=== PATIENT | male | born 1980 | race Caucasian/White ===

== ENCOUNTER 2017-09-19 10:32 | Emergency (ER) | payer OTHER ==
[2017-09-19 10:48] VITALS: BP 146/63; PULSE 84; TEMP 98.2; BMI 23.3
[2017-09-19] MEDS ORDERED: diazePAM 5 MG TABLET PO ONE (11:50)
[2017-09-19] MEDS ORDERED: KETOROLAC TROMETHAMINE 60 MG/2 ML VIAL IM ONE (11:50)
[2017-09-19] MEDS ORDERED: KETOROLAC TROMETHAMINE 60 MG/2 ML VIAL ONE (11:52)
[2017-09-19] MEDS ORDERED: diazePAM 5 MG TABLET ONE (11:52)
--- NOTE | 2017-09-19 12:13 | PDOC ---
History of Present Illness - General Chief Complaint: Head/Neck problem Stated Complaint: NECK INJURY Time Seen by Provider: 09/19/17 11:43 History Source: Patient Exam Limitations: No Limitations - History of Present Illness Initial Comments: 09/19/17 12:00 37-year-old male presents to the ED with complaints of left neck pain. Patient states was shaving and then he turned his neck fast causing him to have a sharp pain to his neck. Patient states within seconds he was unable to move his neck without causing discomfort. Patient states applied heating pad and since symptoms continued decided come to the nearest emergency room. Patient denies recent dental work, ear pain, posterior neck pain, cervical abnormalities, or previous episodes. Patient denies fever and chills. Timing/Duration: constant Severity: moderate Associated Symptoms: reports: denies symptoms Past History - Travel Traveled outside of the country in the last 30 days: No Close contact w/someone who was outside of country & ill: No - Past Medical History Allergies/Adverse Reactions: Allergies Allergy/AdvReac Type Severity Reaction Status Date / Time No Known Allergies Allergy Verified 09/19/17 10:45 Home Medications: Ambulatory Orders NK [No Known Home Medication] 09/19/17 Other medical history: DENIES. - Suicide/Smoking/Psychosocial Hx Smoking History: Never smoked Patient Lives Alone: No Lives with/in: spouse/SO Review of Systems - Review of Systems Able to Perform ROS?: Yes Constitutional: No: Symptoms Reported HEENTM: No: Symptoms Reported Respiratory: No: Symptoms reported Cardiac (ROS): No: Symptoms Reported Musculoskeletal: Yes: Muscle Pain, Neck Pain Integumentary: No: Symptoms Reported Neurological: No: Headache, Paresthesia, Weakness, Dizziness Hematologic/Lymphatic: No: Symptoms Reported *Physical Exam - Vital Signs Last Vital Signs Temp Pulse Resp BP Pulse Ox 98.2 F 84 17 146/63 98 09/19/17 10:45 09/19/17 10:45 09/19/17 10:45 09/19/17 10:45 09/19/17 10:45 - Physical Exam General Appearance: Yes: Nourished, Appropriately Dressed. No: Apparent Distress HEENT: positive: TMs Normal, Pharynx Normal. negative: Pale Conjunctivae Neck: positive: Trachea midline, Normal Thyroid, Supple, Tender lateral (left trapezius/sternoclavicular muscle), Other (patient with noted torticollis). negative: Lymphadenopathy (R), Lymphadenopathy (L), Tender midline Musculoskeletal: negative: Vertebral Tenderness Integumentary: positive: Normal Color, Warm, Moist. negative: Swelling Neurologic: positive: Motor Strength 5/5 (ambulatory) ED Treatment Course - Medications Given in the ED: ED Medications Discontinued Medications Generic Name Dose Route Start Last Admin Trade Name Freq PRN Reason Stop Dose Admin Diazepam 5 mg 09/19/17 11:50 09/19/17 11:56 Valium - PO 09/19/17 11:51 5 mg ONCE ONE Administration Ketorolac Tromethamine 60 mg 09/19/17 11:50 09/19/17 11:56 Toradol Injection - IM 09/19/17 11:51 60 mg ONCE ONE Administration Medical Decision Making - Medical Decision Making 09/19/17 12:11 Patient with acute acquired torticollis. Patient ordered for Valium and Toradol here and will be discharged home with supportive care and a prescription for Valium and motrin. *DC/Admit/Observation/Transfer Diagnosis at time of Disposition: Acquired torticollis - Discharge Dispostion Disposition: HOME Condition at time of disposition: Improved - Referrals Referrals: Martha Bright [Primary Care Provider] - - Patient Instructions Printed Discharge Instructions: DI for Torticollis Additional Instructions: Please take Valium and Motrin as recommended and also try using a supportive pillow or towel roll to provide support. Apply heat to the affected area providing intermittent gentle massage. Please also follow-up with your primary care physician as needed otherwise may return to ED if symptoms continue or worsen greater than 5 days.
== END 2017-09-19 12:23 | disposition home or self-care (01) ==
LOC: JERFT 10:32
PROC: 3E0233Z Introduction of Anti-inflammatory into Muscle, Percutaneous Approach (ICD-10-PCS; principal; 2017-09-19)
DX: S13.4XXA Sprain of ligaments of cervical spine, initial encounter (principal); X50.1XXA Overexertion from prolonged static or awkward postures, initial encounter; Y93.E8 Activity, other personal hygiene; Y92.89 Other specified places as the place of occurrence of the external cause; Y99.8 Other external cause status
CPT/HCPCS: 96372; 99281-25